=== PATIENT | male | born 1995 | race African-American/Black ===

== ENCOUNTER 2024-10-14 08:39 | Emergency (ER) | payer MEDICAID, OTHER ==
[~2024-10-14] VITALS: Ht 182.9 cm; Wt 122.0 kg
[2024-10-14 08:47] VITALS: O2SAT 99
[2024-10-14 09:09] LABS: BASOPHILS % 0.3 % (0.0-2.0); EOSINOPHILS % 2.4 % (0.0-5.0); HEMATOCRIT. 36.9 % (42.0-52.0); HEMOGLOBIN. 12.1 g/dL (14.0-18.0); LYMPHOCYTES % 51.3 % (20.0-50.0); MEAN PLATELET VOLUME 7.2 fl (7.4-10.4); MONOCYTES % 10.3 % (2.0-8.0); NEUTROPHILS % 35.7 % (40.0-76.0); PLATELET 279 x1000/uL (130-400); RED BLOOD CELL COUNT 3.89 mill/uL (4.7-6.1); RED CELL DISTRIBUTION WIDTH 14.9 % (11.6-14.6)
[2024-10-14 09:22] LABS: CREATININE 0.9 mg/dL (0.6-1.3); UREA NITROGEN BLOOD 17 mg/dL (9-23)
[2024-10-14 09:23] LABS: TROPONIN I HIGH SENSITIVITY < 4 ng/L (3.0-53)
[2024-10-14 09:24] LABS: ASPARTATE AMINOTRANSFERASE 42 IU/L (<34); BILIRUBIN DIRECT < 0.1 mg/dL (<=3.0)
[2024-10-14 09:25] LABS: BILIRUBIN TOTAL 0.3 mg/dL (0.1-1.0); PROTEIN TOTAL 6.5 g/dL (6.0-8.3)
[2024-10-14] MEDS: FUROSEMIDE 20MG TABLET PO ONE (10:00)
[2024-10-14] MEDS ORDERED: IBUP-1455 MT (11:23)
[2024-10-14 11:38] VITALS: BP 120/90; PULSE 87; RESP 15; TEMP 36.9; O2SAT 95
== END 2024-10-14 11:41 | disposition home or self-care (01) ==
LOC: ER 08:39
DX: R60.9 Edema, unspecified (principal); K76.0 Fatty (change of) liver, not elsewhere classified; F12.90 Cannabis use, unspecified, uncomplicated
CPT/HCPCS: 36415; 71045; 76700; 80048; 80076; 83880; 84484; 85025; 93005; 93970; 99285